=== PATIENT | female | born 1995 | race Caucasian/White ===

== ENCOUNTER 2020-11-18 12:14 | Emergency (ER) | payer OTHER, SELFPAY ==
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
[2020-11-18 13:33] VITALS: BP 123/84; PULSE 106; RESP 18; TEMP 36.6; O2SAT 99
[2020-11-18] MEDS: oxyCODONE HCl Immed Release 5 MG TABLET PO (15:06)
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
[2020-11-18 18:00] VITALS: BP 116/70; PULSE 64; RESP 16; TEMP 36.1; O2SAT 99
== END 2020-11-18 19:02 | disposition home or self-care (01) ==
PROVIDERS: Emergency Provider Emergency Medicine; PCP Internal Medicine
DX: S06.0X0A Concussion without loss of consciousness, initial encounter (principal); S00.12XA Contusion of left eyelid and periocular area, initial encounter; H11.32 Conjunctival hemorrhage, left eye; S16.1XXA Strain of muscle, fascia and tendon at neck level, initial encounter; Y04.2XXA Assault by strike against or bumped into by another person, initial encounter; Y93.9 Activity, unspecified; Y92.9 Unspecified place or not applicable; Y99.9 Unspecified external cause status
CPT/HCPCS: 70450; 70486; 72125; 99284